=== PATIENT | female | born 1975 | race Caucasian/White ===

== ENCOUNTER 2016-12-12 23:43 | Emergency (ER) | payer SELFPAY ==
[2016-12-13 00:06] VITALS: O2SAT 97
[2016-12-13] MEDS ORDERED: QUEtiapine FUMARATE 25 MG TAB PO ONE (00:38)
--- NOTE | 2016-12-13 01:44 | RAD ---
EXAM: Two view chest. INDICATION: Chest pain. COMPARISON: Chest x-ray: None. FINDINGS: Cardiac silhouette: Unremarkable. Elicia: Unremarkable. Lobar consolidation: None. Pleural effusion: None. Pneumothorax: None. Other: None. Bones: Unremarkable. Other: None. IMPRESSION: 1. No acute cardiopulmonary process. Electronically signed by: Harley Newton MD 12/13/2016 1:42 AM CDT Workstation: [id number]
--- NOTE | 2016-12-13 01:47 | CT ---
EXAM: CT head without contrast. INDICATION: Headache. TECHNIQUE: Contiguous axial CT images of the brain. Intravenous contrast: Absent. DLP 773 mGy-cm. This exam was performed according to our departmental dose-optimization program, which includes automated exposure control, adjustment of the mA and/or kV according to patient size and/or use of iterative reconstruction technique. COMPARISON: None. FINDINGS: Subcutaneous: Unremarkable. No acute intracranial hemorrhage. No midline shift. No mass effect. Ventricles: No hydrocephalus. Mackenzie-white differentiation preserved. Paranasal sinuses/mastoid air cells: There is mild mucosal thickening of the right maxillary sinus Bones/orbits: Visualized portions are unremarkable. IMPRESSION: 1. No CT evidence of acute intracranial hemorrhage. Electronically signed by: Harley Newton MD 12/13/2016 1:45 AM CDT Workstation: [id number]
--- NOTE | 2016-12-13 02:06 | ED.PDOC ---
History of Present Illness - General Chief Complaint: Behavioral / Psych Stated Complaint: hallucinations, headache Time Seen by Provider: 12/12/16 23:45 Source: patient, family Exam Limitations: no limitations - History of Present Illness Initial Comments: the patient is a 41-year-old female presenting to the emergency room secondary to auditory hallucinations. The patient has been hearing voices with increasing frequency over the past 2-3 months. She denies any problem with this prior. No history of schizophrenia. No family history of schizophrenia. No history of any head trauma. The patient has been using some methamphetamines recently. She does know that the voices are hallucinations. She tries not to pay them much attention and certainly does not obey them. She knows they are not real. she has been staying up late at night but does also sleep late into the day. no recent changes in any medications. No syncope or near syncope. she reports that the voices that she hears are not people that she knows. She has not had any visual hallucinations. She does not seem to have any delusions. she is not suicidal or homicidal Timing/Duration: intermittent Severity: moderate Improving Factors: nothing Worsening Factors: nothing Associated Symptoms: denies symptoms Allergies/Adverse Reactions: Allergies NO KNOWN ALLERGY Allergy (Verified 12/13/16 00:06) Home Medications: Ambulatory Orders Quetiapine Fumarate [Seroquel] 25 mg PO BID #40 tab 12/13/16 Review of Systems - Review of Systems Constitutional: States: no symptoms reported EENTM: States: no symptoms reported Respiratory: States: no symptoms reported Cardiology: States: no symptoms reported Gastrointestinal/Abdominal: States: no symptoms reported Genitourinary: States: no symptoms reported Musculoskeletal: States: no symptoms reported Skin: States: no symptoms reported Neurological: States: anxiety, depressed Endocrine: States: no symptoms reported All other Systems: No Change from Baseline Past Medical History (General) - Patient Medical History Hx Seizures: No Hx Dementia: No Hx Asthma: No Hx Cardiac Disorders: No Hx Congestive Heart Failure: No Hx Hypertension: No Hx Diabetes: No Hx Cancer: Yes - cervix Surgical History: cancer surgery, other - Vaccination History Hx Tetanus, Diphtheria Vaccination: No Hx Influenza Vaccination: No Hx Pneumococcal Vaccination: No - Social History Hx Tobacco Use: Yes Hx Chewing Tobacco Use: No Hx Alcohol Use: Yes Hx Substance Use: No Hx Depression: No Feels Threatened In Home Enviroment: No Feels Threatened In a Relationship: No Hx Physical Abuse: No Hx Emotional Abuse: No Hx Suspected Abuse: No Family Medical History - Family History Mother Living Status: Hx Cardiac Disease: Yes - [place] Father Living Status: Hx Family Cancer: Yes - liver Physical Exam - Physical Exam General Appearance: Alert, Anxious, No apparent distress Eye Exam: bilateral normal Ears, Nose, Throat: hearing grossly normal, normal ENT inspection, normal pharynx Neck: non-tender, full range of motion, supple, normal inspection Respiratory: chest non-tender, lungs clear, normal breath sounds, no respiratory distress, no accessory muscle use Cardiovascular/Chest: normal peripheral pulses, regular rate, rhythm, no edema Peripheral Pulses: radial,right: 2+, radial,left: 2+, dorsalis pedis,right: 2+, dorsalis pedis,left: 2+, posterior tibialis,right: 2+, posterior tibialis,left: 2+ Gastrointestinal/Abdominal: non tender, soft Back Exam: normal inspection, no CVA tenderness, no vertebral tenderness Extremity: normal range of motion, non-tender, normal inspection, no pedal edema , normal capillary refill 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 These are likely being triggered by substance abuse in the form of methamphetamines. She does need to discontinue this. Lab work here appears reassuring along with a reassuring chest x-ray and head CT. The patient needs to follow-up with [facility] for further diagnosis and treatment of the hallucinations as well as to get set up for treatment for substance abuse if needed. The patient has contracted for safety. The patient will be started on Seroquel 25 mg twice daily as a starter dose with the expectation of needing to be ramped up or change to a different medication in the near future. . ER warnings were given for any worsening. - Results/Orders Results/Orders: Laboratory Tests 12/13/16 12/13/16 12/13/16 00:07 00:25 00:25 WBC 9.5 RBC 4.20 Hgb 13.0 Hct 38.8 MCV 92.2 MCH 30.8 MCHC 33.4 RDW 13.4 Plt Count 358 MPV 6.8 L Absolute Neuts (auto) 4.20 Absolute Lymphs (auto) 4.20 H Absolute Monos (auto) 0.70 Absolute Eos (auto) 0.20 Absolute Basos (auto) 0.10 Neutrophils % 44.8 Lymphocytes % 44.5 Monocytes % 7.5 Eosinophils % 2.6 Basophils % 0.6 Sodium 139 Potassium 3.6 Chloride 107 Carbon Dioxide 27 Anion Gap 8.6 L BUN 14 Creatinine 0.70 BUN/Creatinine Ratio 20.0 Random Glucose 119 H Serum Osmolality 279.2 Calcium 9.2 Magnesium 1.8 Total Bilirubin 0.3 AST 20 ALT 14 Alkaline Phosphatase 42 Creatine Kinase 244 H* CK-MB (CK-2) 4.3 CK-MB (CK-2) % 1.76 Troponin I < 0.02 B-Natriuretic Peptide 8.3 Serum Total Protein 6.5 Albumin 3.7 Globulin 2.8 Albumin/Globulin Ratio 1.3 TSH 3.05 Urine Color Yellow Urine Appearance Clear Urine pH 6.5 Ur Specific [place] 1.025 Urine Protein Trace Urine Glucose (UA) Negative Urine Ketones 15 H Urine Blood Trace-intact H Urine Nitrite Negative Urine Bilirubin Negative Urine Urobilinogen 0.2 Ur Leukocyte Esterase Negative Urine HCG, Qual Urine Opiates Screen Urine Barbiturates Ur Phencyclidine Scrn U Amphetamin/Meth Scrn U Benzodiazepines Scrn U Cocaine Metab Screen U Cannabinoids Screen 12/13/16 12/13/16 00:25 00:25 WBC RBC Hgb Hct MCV MCH MCHC RDW Plt Count MPV Absolute Neuts (auto) Absolute Lymphs (auto) Absolute Monos (auto) Absolute Eos (auto) Absolute Basos (auto) Neutrophils % Lymphocytes % Monocytes % Eosinophils % Basophils % Sodium Potassium Chloride Carbon Dioxide Anion Gap BUN Creatinine BUN/Creatinine Ratio Random Glucose Serum Osmolality Calcium Magnesium Total Bilirubin AST ALT Alkaline Phosphatase Creatine Kinase CK-MB (CK-2) CK-MB (CK-2) % Troponin I B-Natriuretic Peptide Serum Total Protein Albumin Globulin Albumin/Globulin Ratio TSH Urine Color Urine Appearance Urine pH Ur Specific [place] Urine Protein Urine Glucose (UA) Urine Ketones Urine Blood Urine Nitrite Urine Bilirubin Urine Urobilinogen Ur Leukocyte Esterase Urine HCG, Qual Negative Urine Opiates Screen Negative Urine Barbiturates Negative Ur Phencyclidine Scrn Negative U Amphetamin/Meth Scrn Positive H U Benzodiazepines Scrn Negative U Cocaine Metab Screen Negative U Cannabinoids Screen Negative head CT shows no acute findings. Chest x-ray shows no acute findings. Departure - Departure Clinical Impression: Verbal auditory hallucinations, Substance abuse Disposition: Discharge to Home or Self Care Condition: Fair Departure Forms: ED Discharge - Pt. Copy, Patient Portal Self Enrollment Instructions: DI for Schizophrenia Diet: regular diet Activity: increase activity as tolerated Referrals: Twin Hall MD [Primary Care Provider] - 1-5 Days Prescriptions: Quetiapine Fumarate [Seroquel] 25 mg PO BID #40 tab Home Medications: Ambulatory Orders Quetiapine Fumarate [Seroquel] 25 mg PO BID #40 tab 12/13/16 Additional Instructions: the patient is a 41-year-old female presenting to the emergency room secondary to auditory hallucinations for the last few months. These are likely being triggered by substance abuse in the form of methamphetamines. She does need to discontinue this. Lab work here appears reassuring along with a reassuring chest x-ray and head CT. The patient needs to follow-up with [facility] for further diagnosis and treatment of the hallucinations as well as to get set up for treatment for substance abuse if needed. The patient has contracted for safety. The patient will be started on Seroquel 25 mg twice daily as a starter dose with the expectation of needing to be ramped up or change to a different medication in the near future. . ER warnings were given for any worsening.
[2016-12-13 02:17] VITALS: BP 120/79; TEMP 97.1
== END 2016-12-13 02:50 | disposition home or self-care (01) ==
LOC: ER 23:43
DX: R44.0 Auditory hallucinations (principal); F19.10 Other psychoactive substance abuse, uncomplicated; Z85.41 Personal history of malignant neoplasm of cervix uteri; Z87.891 Personal history of nicotine dependence; Z79.899 Other long term (current) drug therapy; Z82.49 Family history of ischemic heart disease and other diseases of the circulatory system; Z80.8 Family history of malignant neoplasm of other organs or systems

== ENCOUNTER 2017-12-23 16:56 | Emergency (ER) | payer SELFPAY | END 2017-12-23 17:25 | disposition left against medical advice (07) | LOC: ER 16:56 | DX: M25.562 Pain in left knee (principal); Z53.21 Procedure and treatment not carried out due to patient leaving prior to being seen by health care provider ==

== ENCOUNTER 2019-04-16 14:02 | Emergency (ER) | payer SELFPAY ==
[2019-04-16] MEDS ORDERED: SODIUM CHLORIDE 0.9% 1000ML 1,000 ML IVS ONE (14:36)
--- NOTE | 2019-04-16 14:44 | ED.PDOC ---
History of Present Illness - General Chief Complaint: Respiratory Problem Stated Complaint: cough, fever, shakes, bodyaches Time Seen by Provider: 04/16/19 14:34 Source: patient, RN notes reviewed, Vital Signs reviewed, family Exam Limitations: no limitations - History of Present Illness Comments: patient is a 43-year-old white female who presents with complaints of, runny nose, body aches, intermittent fever and shakes for the last 4 days. Patient states that she's had fever, cough, body aches, generalized malaise and fatigue, chills. He has had some vomiting. No diarrhea, chest pain. Nothing seems to make this worse, some improvement with Tylenol. Patient had fever at work yesterday so they sent her home. She is unsure as to how high her fever was. Cough Quality/Degree: moderate, productive cough - clear sputum Possible Cause: no prior episodes, illness exposure - coworker had the flu. Improving Factors: medication - Tylenol Worsening Factors: nothing Associated Symptoms: cough, earache, fever/chills, muscle aches, nasal drainage, shortness of breath Respiratory Risk Factors: exposure to illness, other - smoker Allergies/Adverse Reactions: Allergies NO KNOWN ALLERGY Allergy (Verified 04/16/19 14:20) Home Medications: Ambulatory Orders NK 04/16/19 Review of Systems - Review of Systems Constitutional: States: see HPI, chills, fever EENTM: States: see HPI, ear pain Respiratory: States: see HPI, cough, short of breath Cardiology: States: no symptoms reported Gastrointestinal/Abdominal: States: see HPI, nausea, vomiting. Denies: diarrhea Genitourinary: States: no symptoms reported Musculoskeletal: States: see HPI, joint pain, muscle pain, muscle stiffness Skin: States: no symptoms reported Neurological: States: no symptoms reported Endocrine: States: no symptoms reported Hematologic/Lymphatic: States: no symptoms reported All other Systems: Reviewed and Negative Past Medical History (General) - Patient Medical History Hx Seizures: No Hx Stroke: No Hx Dementia: No Hx Asthma: No Hx Cardiac Disorders: No Hx Congestive Heart Failure: No Hx Hypertension: No Hx Diabetes: No Hx Cancer: Yes - cervix Hx MRSA: No Surgical History: no surgical history - Vaccination History Hx Tetanus, Diphtheria Vaccination: No Hx Influenza Vaccination: No Hx Pneumococcal Vaccination: No - Social History Hx Tobacco Use: Yes Hx Chewing Tobacco Use: No Hx Alcohol Use: Yes - Occasional Hx Substance Use: No Hx Depression: No Hx Physical Abuse: No Hx Emotional Abuse: No Hx Suspected Abuse: No - Female History Patient is a Female of Child Bearing Age (10 -59 yrs old): Yes Patient : No Family Medical History - Family History Mother Living Status: Hx Cardiac Disease: Yes - [place] Father Living Status: Hx Family Cancer: Yes - liver Physical Exam - Physical Exam General Appearance: Alert, Anxious, Restless, Well Developed, Well Groomed, Well Hydrated, Well Nourished Eye Exam: bilateral normal ENT Exam: normal ENT inspection, hearing grossly normal, TMs normal, pharynx normal, nasal drainage Neck: non-tender, full range of motion, supple, trachea midline, lymphadenopathy (R), lymphadenopathy (L) Respiratory: chest non-tender, lungs clear, normal breath sounds, no respiratory distress, no accessory muscle use Cardiovascular/Chest: normal peripheral pulses, no edema, no JVD, no murmur, JVD, tachycardia - in the 120s Gastrointestinal/Abdominal: normal bowel sounds, non tender, soft Extremity: normal range of motion, non-tender, normal inspection, no pedal edema, no calf tenderness 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 Patient's labs were relatively unremarkable. She has improved while here. Plan on discharge home with symptomatic treatment. I have discussed plan of care with the patient she voices understanding and agreement. 04/16/19 15:57 Jorge Enrique M.D. #[id number] - Results/Orders Results/Orders: 04/16/19 14:35 EKG Assessment ONCE 04/16/19 14:45 EKG .ONCE 04/16/19 14:54 URINALYSIS Stat Laboratory Results - last 24 hr 04/16/19 04/16/19 04/16/19 14:40 14:50 14:50 WBC 7.1 RBC 4.48 Hgb 16.0 Hct 46.6 MCV 104.2 H MCH 35.8 H MCHC 34.3 RDW 12.8 Plt Count 199 MPV 7.3 L Absolute Neuts (auto) 5.30 Absolute Lymphs (auto) 1.10 Absolute Monos (auto) 0.60 Absolute Eos (auto) 0.00 Absolute Basos (auto) 0.00 Neutrophils % 74.8 Lymphocytes % 16.0 L Monocytes % 8.2 Eosinophils % 0.7 L Basophils % 0.3 Sodium 136 Potassium 4.1 Chloride 98 L Carbon Dioxide 20 L Anion Gap 22.1 H BUN 13 Creatinine 0.69 BUN/Creatinine Ratio 18.8 Random Glucose 140 H Serum Osmolality 274.4 L Calcium 10.3 H Total Bilirubin 1.7 H AST 207 H ALT 166 H Alkaline Phosphatase 48 Serum Total Protein 8.9 H Albumin 4.7 Globulin 4.2 H Albumin/Globulin Ratio 1.1 Lipase 102 H Salicylates Urine Opiates Screen Negative Acetaminophen Urine Barbiturates Negative Ur Phencyclidine Scrn Negative U Amphetamin/Meth Scrn Negative U Benzodiazepines Scrn Negative U Cocaine Metab Screen Negative U Cannabinoids Screen Negative Ethyl Alcohol 04/16/19 14:50 WBC RBC Hgb Hct MCV MCH MCHC RDW Plt Count MPV Absolute Neuts (auto) Absolute Lymphs (auto) Absolute Monos (auto) Absolute Eos (auto) Absolute Basos (auto) Neutrophils % Lymphocytes % Monocytes % Eosinophils % Basophils % Sodium Potassium Chloride Carbon Dioxide Anion Gap BUN Creatinine BUN/Creatinine Ratio Random Glucose Serum Osmolality Calcium Total Bilirubin AST ALT Alkaline Phosphatase Serum Total Protein Albumin Globulin Albumin/Globulin Ratio Lipase Salicylates < 4.0 Urine Opiates Screen Acetaminophen < 10.0 L Urine Barbiturates Ur Phencyclidine Scrn U Amphetamin/Meth Scrn U Benzodiazepines Scrn U Cocaine Metab Screen U Cannabinoids Screen Ethyl Alcohol < 5.40 influenza A and B are negative EXAM DESCRIPTION: Chest,2 Views CLINICAL HISTORY: 43 years Female, Tachycardia COMPARISON: 12/13/2016. TECHNIQUE: PA and lateral radiographs of the chest were obtained. FINDINGS: Trachea is midline.The cardiomediastinal silhouette is normal in size. The pulmonary vasculature is within normal limits.The lungs are clear with no acute consolidation.No evidence of pleural effusions.No evidence of pneumothorax. IMPRESSION: No acute cardiopulmonary process. Electronically signed by: Bing Owusu MD 04/16/2019 3:17 Departure - Departure Clinical Impression: Upper respiratory infection Time of Disposition: 15:58 Disposition: Discharge to Home or Self Care Condition: Good Departure Forms: ED Discharge - Pt. Copy, Patient Portal Self Enrollment Instructions: Viral Upper Respiratory Infection, Adult (DC) Home Medications: Ambulatory Orders NK 04/16/19
--- NOTE | 2019-04-16 15:19 | RAD ---
EXAM DESCRIPTION: Chest,2 Views CLINICAL HISTORY: 43 years Female, Tachycardia COMPARISON: 12/13/2016. TECHNIQUE: PA and lateral radiographs of the chest were obtained. FINDINGS: Trachea is midline.The cardiomediastinal silhouette is normal in size. The pulmonary vasculature is within normal limits.The lungs are clear with no acute consolidation.No evidence of pleural effusions.No evidence of pneumothorax. IMPRESSION: No acute cardiopulmonary process. Electronically signed by: Bing Owusu MD 04/16/2019 3:17 PM CDT
[2019-04-16 16:36] VITALS: BP 126/82; TEMP 98; O2SAT 99
== END 2019-04-16 16:15 | disposition home or self-care (01) ==
LOC: ER 14:02
DX: J06.9 Acute upper respiratory infection, unspecified (principal); R94.5 Abnormal results of liver function studies; Z87.891 Personal history of nicotine dependence; Z85.41 Personal history of malignant neoplasm of cervix uteri
CPT/HCPCS: 71046; 80053; 80307; 80320; 80329; 83690; 85025; 87502; 93005; J7030